=== PATIENT | male | born 1970 | race Two or more races ===

== ENCOUNTER → 2024-07-11 | Outpatient (CLI) | payer MEDICAID, SELFPAY ==
--- NOTE | 2024-07-11 17:10 | XR_ITS ---
Examination: Lumbar spine, 5 views Technique: Lumbar spine AP, lateral, coned lateral lower lumbar spine, bilateral obliques 5 views Exam date and time: July 11, 2024 1734 hrs. Indications: Low back pain beginning 10 years ago Findings: Adequate alignment lumbar vertebral bodies Moderate to advanced degenerative disc disease L5-S1 Lumbar fracture No spondylolisthesis Impression: Moderate to advanced degenerative disc disease L5-S1
== END | disposition home or self-care (01) ==
PROVIDERS: PCP Physician Assistant; Referring Provider Physician Assistant; Visit Provider Physician Assistant
DX: M51.379 Other intervertebral disc degeneration, lumbosacral region without mention of lumbar back pain or lower extremity pain (principal)
CPT/HCPCS: 72110

== ENCOUNTER → 2025-01-31 | Outpatient (CLI) | payer MEDICAID, SELFPAY ==
--- NOTE | 2025-01-31 13:16 | XR_ITS ---
Examination: Shoulder, right, 3 views Technique: Shoulder AP internal rotation, AP external rotation, Y view shoulder, 3 views Exam date and time : January 31, 2025: 1332 hours INDICATIONS: Right shoulder pain beginning 8 days ago. FINDINGS: No shoulder fracture or dislocation Mild narrowing glenohumeral joint IMPRESSION: No fracture or shoulder dislocation Suggest follow-up weightbearing AC joint views as clinically warranted
== END | disposition home or self-care (01) ==
PROVIDERS: PCP Physician Assistant; Referring Provider Physician Assistant; Visit Provider Physician Assistant
DX: M25.511 Pain in right shoulder (principal)
CPT/HCPCS: 73030

== ENCOUNTER → 2025-02-13 | Outpatient (CLI) | payer MEDICAID, SELFPAY ==
--- NOTE | 2025-02-13 09:44 | XR_ITS ---
EXAMINATION: Right shoulder 4 views TECHNIQUE: AP right shoulder internal rotation with without weights 2 views AP right shoulder external rotation single view Y view right shoulder total 4 views Date and time: February 13, 2025, 1002 hours INDICATIONS: Lifting injury to the shoulder 2 weeks ago. FINDINGS: 3 mm AC joint separation age-indeterminate No shoulder fracture or dislocation Mild narrowing glenohumeral joint IMPRESSION: 3 mm AC joint separation age-indeterminate
== END | disposition home or self-care (01) ==
PROVIDERS: PCP Physician Assistant; Referring Provider Physician Assistant; Visit Provider Physician Assistant
DX: S43.101A Unspecified dislocation of right acromioclavicular joint, initial encounter (principal); X58.XXXA Exposure to other specified factors, initial encounter
CPT/HCPCS: 73030